=== PATIENT | male | born 1995 | race Caucasian/White ===

== ENCOUNTER 2016-10-22 11:12 | Emergency (ER) | payer SELFPAY ==
[2016-10-22 11:18] VITALS: RESP 16
--- NOTE | 2016-10-22 12:19 | DX ---
Ankle Minimum, 3 Views Right History: Trauma, pain. Slipped on ice. Twisting injury. Comparison: None. Findings: No acute fracture or dislocation identified. Lateral soft tissue swelling. Ankle mortise ap pears intact without widening. No evidence malleolar fracture. Talar dome appears intact. Impression: 1. No definite acute fracture. 2. Lateral soft tissue swelling. 3. Consider additional imaging if symptoms persist, if clinically indicated.
--- NOTE | 2016-10-22 12:47 | EDPHY ---
H & P Time Seen by Provider: 10/22/16 12:32 HPI/ROS: CHIEF COMPLAINT: [right ankle pain ] HISTORY OF PRESENT ILLNESS: Patient is a 21-year-old male who injured his right ankle while running last evening. He states he inverted his ankle. He now has moderate pain laterally on his ankle extending up his fibula. He has mild swelling. No other injury. No numbness or tingling REVIEW OF SYSTEMS: Past Medical/Surgical History: Negative Past surgical history: Negative Smoking Status: Never smoked Physical Exam: Vitals noted General Appearance: Alert and no distress. Head: Pupils equal. Normal. Respiratory: No respiratory distress. Cardiac: regular rate and rhythm. Extremities: patient has mild swelling over the right lateral malleolus. There is tenderness to palpation over the deltoid ligament. No proximal fibular tenderness. No foot tenderness to palpation. Neurovascularly intact distally. Skin: No rashes or lesions. Neuro: Alert. Normal mood and affect. Constitutional: Initial Vital Signs Temperature (C) 36.8 C 10/22/16 11:16 Heart Rate 102 H 10/22/16 11:16 Respiratory Rate 16 10/22/16 11:16 Blood Pressure 141/77 H 10/22/16 11:16 O2 Sat (%) 96 10/22/16 11:16 O2 Delivery Mode Room Air Allergies/Adverse Reactions: No Known Allergies Allergy (Unverified 10/22/16 11:19) Home Medications: Medication Instructions Recorded NK [No Known Home Meds] 10/22/16 Medical Decision Making Procedures: [place] boot placed by motion study technician. Patient was given crutches and instruction on use. ED Course/Re-evaluation: In the emergency department I discussed possible etiologies with the patient. X -ray was ordered. Right ankle x-ray: Soft tissue swelling. No fracture dislocation. I discussed the result with the patient. I answered all his questions. He was given a [place] boot. He is given crutches. He will follow up with Orthopedics. I gave him warnings prior to leaving. Differential Diagnosis: My differential includes but is not limited to fracture, dislocation, sprain, strain Departure - Departure Disposition: Home, Routine, Self-Care Clinical Impression: Right ankle sprain Qualifiers: Encounter type: initial encounter Involved ligament of ankle: deltoid ligament Qualifier Code: (S93.421A) Sprain of deltoid ligament of right ankle, initial encounter Condition: Good Instructions: Ankle Sprain (ED) Additional Instructions: Your x-ray did not show any fracture. Use your splint and crutches for comfort. Referrals: Dimitry Benjamin MD [Medical Doctor] - 5-7 days, call for appt.
[2016-10-22 13:01] VITALS: BP 138/78; PULSE 72; TEMP 98.6; O2SAT 97
== END 2016-10-22 13:02 | disposition home or self-care (01) ==
DX: S93.421A Sprain of deltoid ligament of right ankle, initial encounter (principal); X58.XXXA Exposure to other specified factors, initial encounter; Y99.8 Other external cause status; Y93.02 Activity, running
CPT/HCPCS: L4386